=== PATIENT | female | born 1980 | race Caucasian/White ===

== ENCOUNTER 2019-05-02 12:30 | Emergency (ER) | payer SELFPAY ==
[~2019-05-02] VITALS: Ht 157.5 cm; Wt 93.1 kg
[2019-05-02] MEDS ORDERED: NS IV 1000 ML 1,000 ML IV SCH (13:03)
[2019-05-02 13:06] LABS: BASOPHILS # (AUTO) 0.1 10^3/uL (0.0-0.1); BASOPHILS % (AUTO) 0 % (0-10); EOSINOPHILS # (AUTO) 0.2 10^3/uL (0.0-0.3); EOSINOPHILS % (AUTO) 2 % (0-10); HEMATOCRIT 38 % (35-52); HEMOGLOBIN 12.3 G/DL (11.5-16.0); LYMPHOCYTES # (AUTO) 2.8 X 10^3 (1.0-4.0); LYMPHOCYTES % (AUTO) 24 % (12-44); MEAN CORPUSCULAR HEMOGLOBIN 27 PG (25-34); MEAN CORPUSCULAR HGB CONC 33 G/DL (32-36); MEAN CORPUSCULAR VOLUME 82 FL (80-99); MEAN PLATELET VOLUME 12.7 FL (7.4-10.4); MONOCYTES # (AUTO) 0.6 X 10^3 (0.0-1.0); MONOCYTES % (AUTO) 5 % (0-12); NEUTROPHILS % (AUTO) 69 % (42-75); PLATELET COUNT 198 10^3/uL (130-400); RED CELL DISTRIBUTION WIDTH 13.7 % (10.0-14.5); WHITE BLOOD COUNT 11.6 10^3/uL (4.3-11.0)
--- NOTE | 2019-05-02 13:14 | ED Neurological Problem ---
General Chief Complaint: Neurological Problems Stated Complaint: SEIZURE Nursing Triage Note: was at a [employer] game when she started to feel weak and thought she needed some protein, started to eat a hot dog when she began to get light headed and weak, mother states that pt then started to convulse and lost consciousness, pt states she has had a previous episode similar to this several months ago Nursing Sepsis Screen: No Definite Risk Source: patient, family, other (friend) Exam Limitations: no limitations History of Present Illness Date Seen by Provider: May 02, 2019 Time Seen by Provider: 12:39 Initial Comments This 38-year-old young lady presents to the emergency room by private vehicle accompanied by family and a friend after having a suspected seizure episode at the [employer] football game. She recalls feeling a little faint and went to get a hot dog. She had eaten a pretzel for breakfast. While waiting to get the hot dog she began to have some intermittent convulsions and was not able to talk. She was responsive during that time. Her friend that was with her at that time states these intermittent convulsions lasted for 3-4 minutes. Then she went into constant convulsions for about 2 minutes during which she was not responsive. She then seemed postictal afterwards and did not recognize those around her. She is now alert and oriented. There was no loss of bowel or bladder continence. Patient also had an episode of syncope and possibly convulsions in September of this year while at a [employer]. She did present to emergency room but declined a full workup. Imaging of the head was not performed. She did follow-up with a neurologist who did not believe her symptoms were consistent with a seizure according to patient's report. Patient was feeling well prior to this episode. She denies any drug or alcohol use. Patient was lowered to the ground during the episode and there was no traumatic injury. Allergies and Home Medications Allergies Coded Allergies: No Known Drug Allergies (Unverified , 05/02/19) Home Medications Levetiracetam 500 Mg Tablet, 500 MG PO BID Prescribed by: KIERAN ALEJANDRE on 05/02/19 0692 Patient Home Medication List Home Medication List Reviewed: Yes Review of Systems Review of Systems Constitutional: no symptoms reported Eyes: No Symptoms Reported Ears, Nose, Mouth, Throat: no symptoms reported Respiratory: no symptoms reported Cardiovascular: no symptoms reported Gastrointestinal: no symptoms reported Genitourinary: no symptoms reported : No Musculoskeletal: no symptoms reported Skin: no symptoms reported Psychiatric/Neurological: See HPI Endocrine: No Symptoms Reported Hematologic/Lymphatic: No Symptoms Reported Past [id number]-[id number]-Ntckkk Hx Patient Social History Alcohol Use: Denies Use Recreational Drug Use: No 2nd Hand Smoke Exposure: No Recent Foreign Travel: No Contact w/Someone Who Travel: No Recent Infectious Disease Expo: No Recent Hopitalizations: No Physical Abuse: No Sexual Abuse: No Mistreated: No Fear: No Seasonal Allergies Seasonal Allergies: No Past Medical History Surgeries: Yes Abdominal (mini gastric bypass), Section, Orthopedic (hand) Respiratory: No Cardiac: Yes Hypertension Neurological: No Genitourinary: No Gastrointestinal: No Musculoskeletal: No Endocrine: No HEENT: No Cancer: No Psychosocial: No Integumentary: No Blood Disorders: No Physical Exam Vital Signs Vital Signs - First Documented 05/02/19 05/02/19 12:52 15:52 Temp 37.4 Pulse 131 Resp 18 B/P (MAP) 152/94 (113) Pulse Ox 96 O2 Delivery Room Air Capillary Refill : Less Than 3 Seconds Height, Weight, BMI Height: '" Weight: lbs. oz. kg; 37.00 BMI Method: General Appearance: WD/WN, no apparent distress HEENT: PERRL/EOMI, normal ENT inspection, pharynx normal Neck: normal inspection Respiratory: lungs clear, normal breath sounds, no respiratory distress, no accessory muscle use Cardiovascular: regular rate, rhythm, no edema, no murmur Gastrointestinal: normal bowel sounds, non tender, soft Extremities: normal inspection, no pedal edema Neurologic/Psychiatric: anesthesiology tech II-XII nml as tested, no motor/sensory deficits, alert, normal mood/affect, oriented x 3, other (normal finger to nose and heel to culp) Crainal Nerves: normal hearing, normal speech, PERRL Coordination/Gait: normal finger to nose Motor/Sensory: no motor deficit, no sensory deficit Skin: normal color, warm/dry Progress/Results/Core Measures Results/Orders Lab Results Laboratory Tests Test 05/02/19 12:41 05/02/19 12:55 Range/Units White Blood Count 11.6 H 4.3-11.0 10^3/uL Red Blood Count 4.58 4.35-5.85 10^6/uL Hemoglobin 12.3 11.5-16.0 G/DL Hematocrit 38 35-52 % Mean Corpuscular Volume 82 80-99 FL Mean Corpuscular Hemoglobin 27 25-34 PG Mean Corpuscular Hemoglobin Concent 33 32-36 G/DL Red Cell Distribution Width 13.7 10.0-14.5 % Platelet Count 198 130-400 10^3/uL Mean Platelet Volume 12.7 H 7.4-10.4 FL Neutrophils (%) (Auto) 69 42-75 % Lymphocytes (%) (Auto) 24 12-44 % Monocytes (%) (Auto) 5 0-12 % Eosinophils (%) (Auto) 2 0-10 % Basophils (%) (Auto) 0 0-10 % Neutrophils # (Auto) 8.0 H 1.8-7.8 X 10^3 Lymphocytes # (Auto) 2.8 1.0-4.0 X 10^3 Monocytes # (Auto) 0.6 0.0-1.0 X 10^3 Eosinophils # (Auto) 0.2 0.0-0.3 10^3/uL Basophils # (Auto) 0.1 0.0-0.1 10^3/uL Sodium Level 137 135-145 MMOL/L Potassium Level 3.3 L 3.6-5.0 MMOL/L Chloride Level 107 98-107 MMOL/L Carbon Dioxide Level 17 L 21-32 MMOL/L Anion Gap 13 5-14 MMOL/L Blood Urea Nitrogen 9 7-18 MG/DL Creatinine 0.80 0.60-1.30 MG/DL Estimat Glomerular Filtration Rate > 60 BUN/Creatinine Ratio 11 Glucose Level 94 70-105 MG/DL Calcium Level 8.6 8.5-10.1 MG/DL Corrected Calcium 8.6 8.5-10.1 MG/DL Magnesium Level 2.3 1.6-2.4 MG/DL Total Bilirubin 0.3 0.1-1.0 MG/DL Aspartate Amino Transf (AST/SGOT) 26 5-34 U/L Alanine Aminotransferase (ALT/SGPT) 24 0-55 U/L Alkaline Phosphatase 104 40-136 U/L Total Protein 7.1 6.4-8.2 GM/DL Albumin 4.0 3.2-4.5 GM/DL Serum Test, Qualitative NEGATIVE NEGATIVE Urine Color YELLOW Urine Clarity CLEAR Urine pH 5 5-9 Urine Specific [place] 1.020 1.016-1.022 Urine Protein 2+ H NEGATIVE Urine Glucose (UA) NEGATIVE NEGATIVE Urine Ketones 1+ H NEGATIVE Urine Nitrite NEGATIVE NEGATIVE Urine Bilirubin NEGATIVE NEGATIVE Urine Urobilinogen NORMAL NORMAL MG/DL Urine Leukocyte Esterase NEGATIVE NEGATIVE Urine RBC (Auto) NEGATIVE NEGATIVE Urine RBC NONE /HPF Urine WBC RARE /HPF Urine Crystals NONE /LPF Urine Bacteria FEW H /HPF Urine Casts NONE /LPF Urine Mucus NEGATIVE /LPF Urine Culture Indicated NO My Orders Orders - KIERAN LEROY MD Ed Iv/Invasive Line Start (05/02/19 12:58) Cbc With Automated Diff (05/02/19 12:58) Comprehensive Metabolic Panel (05/02/19 12:58) Hcg,Qualitative Serum (05/02/19 12:58) Magnesium (05/02/19 12:58) Ua Culture If Indicated (05/02/19 12:58) Ct Head Wo (05/02/19 12:58) Ed Iv/Invasive Line Start (05/02/19 12:58) Ns Iv 1000 Ml (Sodium Chloride 0.9%) (05/02/19 13:03) Ekg Tracing (05/02/19 13:03) Monitor-Rhythm Ecg Trace Only (05/02/19 13:03) Levetiracetam Injection (Keppra Injectio (05/02/19 21:00) Ns Iv 500 Ml (Sodium Chloride 0.9%) (05/02/19 14:51) Potassium Chloride (Tablet) (Klor Con Ta (05/02/19 15:00) Medications Given in ED Current Medications Medications Dose Ordered Sig/Pati Route Start Time Stop Time Status Last Admin Dose Admin Levetiracetam 1000 mg/Sodium Chloride 110 ml @ 440 mls/hr Q12HR ONCE IV 05/02/19 21:00 05/02/19 21:00 DC 05/02/19 15:10 440 MLS/HR Potassium Chloride 20 meq ONCE ONCE PO 05/02/19 15:00 05/02/19 15:01 DC 05/02/19 15:10 20 MEQ Sodium Chloride 500 ml @ 0 mls/hr Q0M ONCE IV 05/02/19 14:51 05/02/19 14:53 DC 05/02/19 15:10 500 MLS/HR Vital Signs/I&O 05/02/19 05/02/19 12:52 15:52 Temp 37.4 Pulse 131 95 Resp 18 20 B/P (MAP) 152/94 (113) 159/99 Pulse Ox 96 O2 Delivery Room Air Blood Pressure Mean: 113 Progress Progress Note : Progress Note Patient was seen and evaluated upon arrival. Because she has now had 2 episodes of possible seizures in the last year, CT imaging of the head was pursued. CT was negative. Workup was otherwise unremarkable except for mild hypokalemia. Tachycardia resolved with IV hydration. She received about 1300 mL of normal saline. I discussed her case with Dr. Snell, neurologist on-call for Dr. Dozier at [facility]. He recommended starting on prophylactic Keppra. He recommended a dose of 1000 mg loading dose now followed by 250 mg twice a day. Keppra 500 mg twice a day was prescribed because this is the dose available on the $4 list. Patient was strongly advised to follow-up with a neurologist and primary care provider. We reviewed seizure precautions including the prohibition of driving for at least 6 months unless otherwise cleared. Initial ECG Impression Date: May 02, 2019 Initial ECG Impression Time: 13:20 Initial ECG Rate: 122 Initial ECG Rhythm: S.Tach Initial ECG Intervals: Normal Comment Sinus tachycardia with no ST elevation or depression. No abnormal intervals or axis deviation. Diagnostic Imaging Diagonstic Imaging: CT Plain Films/CT/US/NM/MRI: head Comments CT head viewed by me and report reviewed. See report below: NAME: MEGHAN KAMINSKI [facility] REC#: [id number] PT STATUS: REG ER : 1980 PHYSICIAN: KIERAN LEROY MD ADMIT DATE: 05/02/19/ER Draft Date of Exam:05/02/19 CT HEAD WO PROCEDURE: CT head without contrast. TECHNIQUE: Multiple contiguous axial images were obtained through the brain without the use of intravenous contrast. Auto Exposure Controls were utilized during the CT exam to meet ALARA standards for radiation dose reduction. INDICATION: Syncope, altered metal status. COMPARISON: None. DISCUSSION: No intracranial hemorrhage, mass, midline shift, or hydrocephalus. The ventricles and sulci are normal size and configuration for age. The visualized orbits, paranasal sinuses, mastoid air cells, and calvarium are unremarkable. IMPRESSION: 1. Negative head CT. Dictated on workstation # [id number] Dict: 05/02/19 1334 Trans: 05/02/19 1337 [facility] [id number] Interpreted by: CURT MALAGON MD Departure Impression Primary Impression: Witnessed seizure-like activity Additional Impressions: Hypokalemia Hypovolemia Disposition: 01 HOME, SELF-CARE Condition: Improved Departure-Patient Inst. Decision time for Depature: 15:28 Referrals: NO,LOCAL PHYSICIAN (PCP/Family) Primary Care Physician Patient Instructions: Seizures Add. Discharge Instructions: Start Keppra as prescribed. Please make a follow-up appointment with Dr. Dozier or the neurologist of your choice as soon as possible. Also follow-up with a primary care provider soon as possible. Return to the emergency room if you have worsening symptoms. Do not drive, operate dangerous machinery, or do any activity that would put you at risk should you have another seizure. Such activities might include use of heights, bicycle riding, swimming, horseback riding, etc. Stay well hydrated with plenty of non-caffeinated clear liquids. Start reducing your consumption of caffeine. All discharge instructions reviewed with patient and/or family. Voiced understanding. Scripts Levetiracetam (Keppra) 500 Mg Tablet 500 MG PO BID, #60 TAB Prov: KIERAN LEROY MD 05/02/19 KIERAN LEROY MD May 02, 2019 13:14
[2019-05-02 13:23] LABS: ALANINE AMINOTRANSFERASE 24 U/L (0-55); ALKALINE PHOSPHATASE 104 U/L (40-136); BILIRUBIN,TOTAL 0.3 MG/DL (0.1-1.0); BUN/CREATININE RATIO 11; CALCIUM 8.6 MG/DL (8.5-10.1); CARBON DIOXIDE 17 MMOL/L (21-32); CHLORIDE 107 MMOL/L (98-107); GFR ESTIMATED > 60; GLUCOSE 94 MG/DL (70-105); MAGNESIUM 2.3 MG/DL (1.6-2.4); POTASSIUM 3.3 MMOL/L (3.6-5.0); SODIUM 137 MMOL/L (135-145); TOTAL PROTEIN 7.1 GM/DL (6.4-8.2)
[2019-05-02 13:30] LABS: BILIRUBIN,URINE NEGATIVE (NEGATIVE); CLARITY,URINE CLEAR; COLOR,URINE YELLOW; GLUCOSE, URINE (UA) NEGATIVE (NEGATIVE); KETONES,URINE 1+ (NEGATIVE); LEUKOCYTE ESTERASE ,URINE NEGATIVE (NEGATIVE); NITRITE,URINE NEGATIVE (NEGATIVE); PH,URINE 5 (5-9); PROTEIN,URINE 2+ (NEGATIVE); UROBILINOGEN,URINE NORMAL (NORMAL)
--- NOTE | 2019-05-02 13:37 | Diagnostic Imaging Report ---
PROCEDURE: CT head without contrast. TECHNIQUE: Multiple contiguous axial images were obtained through the brain without the use of intravenous contrast. Auto Exposure Controls were utilized during the CT exam to meet ALARA standards for radiation dose reduction. INDICATION: Syncope, altered metal status. COMPARISON: None. DISCUSSION: No intracranial hemorrhage, mass, midline shift, or hydrocephalus. The ventricles and sulci are normal size and configuration for age. The visualized orbits, paranasal sinuses, mastoid air cells, and calvarium are unremarkable. IMPRESSION: 1. Negative head CT. Dictated by: Dictated on workstation # [id number]
[2019-05-02 13:40] LABS: BACTERIA,URINE FEW /HPF; WBC,URINE RARE /HPF
[2019-05-02] MEDS ORDERED: NS IV 500 ML 500 ML IV ONE (14:51)
[2019-05-02] MEDS ORDERED: KCL 10 MEQ TAB (MICRO K) PO ONE (15:00)
[2019-05-02] MEDS ORDERED: LEVE500T99 PO (15:30)
[2019-05-02 15:52] VITALS: BP 159/99
[2019-05-02] MEDS ORDERED: LEVETIRACETAM INJECTION 1,000 MG in NS (IVPB) 100 ML IV ONE (21:00)
== END 2019-05-02 15:52 | disposition home or self-care (01) ==
LOC: EDUNIT# 12:30 → ER 12:32
DX: R29.818 Other symptoms and signs involving the nervous system (principal); E87.6 Hypokalemia; E86.1 Hypovolemia; I10 Essential (primary) hypertension
CPT/HCPCS: 36415; 70450; 80053; 81000; 83735; 84703; 85025; 93005; 93041